=== PATIENT | female | born 2000 | race Caucasian/White ===

== ENCOUNTER 2019-06-06 13:00 | Emergency (ER) | payer OTHER ==
--- NOTE | 2019-06-06 13:05 | UC ---
Nausea/Vomiting/Diarrhea HPI - HPI Summary HPI Summary: Patient is a 18-year-old female presenting with acute onset of nausea and vomiting that began last night after work and continued throughout the night. Notes 10 episodes of emesis with the last one being at 9:30 this morning. Patient denies eating dinner last night because she did not feel well and only had a bagel with cream cheese for lunch yesterday. Denies abdominal pain. Denies hematemesis. Denies changes in bowel movements and urination. Denies fever and chills. States she has not been able to keep food down but has been keeping fluids down since this morning. Nausea continues. Denies possibility of and states she has the nexplanon. - History of Current Complaint Stated Complaint: VOMITING Hx Obtained From: Patient Hx Last Menstrual Period: 11/02/18 Onset/Duration: Sudden Onset, Lasting Hours - Allergies/Home Medications Allergies/Adverse Reactions: Allergies Allergy/AdvReac Type Severity Reaction Status Date / Time No Known Allergies Allergy Verified 06/06/19 13:05 Home Medications: Home Medications Ibuprofen TAB* [Motrin TAB* 600 MG] 400 mg PO Q8H PRN 06/06/19 [History Confirmed 06/06/19] PMH/Surg Hx/FS Hx/Imm Hx Previously Healthy: Yes - Surgical History Surgical History: None - Family History Known Family History: Positive: Non-Contributory - Social History Occupation: Employed Full-time Alcohol Use: None Substance Use Type: None Smoking Status (MU): Never Smoked Tobacco Review of Systems All Other Systems Reviewed And Are Negative: Yes Constitutional: Positive: Negative. Negative: Fever, Chills ENT: Positive: Negative Respiratory: Positive: Negative Cardiovascular: Positive: Negative Gastrointestinal: Positive: Vomiting, Nausea. Negative: Abdominal Pain, Diarrhea Musculoskeletal: Positive: Negative Neurological: Positive: Negative Physical Exam Triage Information Reviewed: Yes Appearance: Well-Appearing, No Pain Distress, Well-Nourished, Other: - sitting comfortably on exam table Vital Signs: Vital Signs (72 hours) 06/06/19 13:06 Temperature 98.1 F Pulse Rate 97 Respiratory 17 Rate Blood Pressure 137/54 (mmHg) O2 Sat by Pulse 100 Oximetry Vital Signs Reviewed: Yes Eyes: Positive: Conjunctiva Clear ENT: Positive: Hearing grossly normal, Pharyngeal erythema, TMs normal, Uvula midline, Other - moist oromucosa. Negative: Tonsillar swelling, Tonsillar exudate Neck exam: Normal Neck: Positive: Supple Respiratory Exam: Normal Respiratory: Positive: Lungs clear, Normal breath sounds, No respiratory distress Cardiovascular Exam: Normal Cardiovascular: Positive: RRR Abdominal Exam: Normal Abdomen Description: Positive: Nontender, Soft. Negative: CVA Tenderness (R), CVA Tenderness (L), Distended, Guarding, McBurney's Point Tenderness Bowel Sounds: Positive: Present Neurological: Positive: Alert Psychological: Positive: Age Appropriate Behavior Naus/Vom/Diarrhea Course/Dx - Course Course Of Treatment: I gave dose of zofran here for nausea. Patient VS and PE findings normal and no concern for dehydration. Gave prescription for zofran and instructed to increase fluids and continue symptomatic treatment. Instructed to go to ED if symptoms worsen. Patient voiced understanding and agreed with the treatment plan. - Differential Dx/Diagnosis Provider Diagnosis: Nausea and vomiting in adult patient Condition At Discharge: Stable Discharge ED - Sign-Out/Discharge Documenting (check all that apply): Patient Departure All imaging exams completed and their final reports reviewed: No Studies - Discharge Plan Condition: Stable Disposition: HOME Prescriptions: Ondansetron ODT TAB* [Zofran 4 MG Odt TAB*] 4 mg SL Q6H PRN #12 tab.odt PRN Reason: Nausea/Vomiting Patient Education Materials: Acute Nausea and Vomiting (ED) Forms: *Work Release Referrals: George Lee MD [Primary Care Provider] - If Needed Additional Instructions: As discussed, take the zofran every 6 hours as needed for your nausea and vomiting. Your symptoms should resolve within the next day or two. It is important to increase your fluid intake to avoid dehydration. Eat a bland diet, such as toast, bananas, apples, and rice while symptoms are present. Go to the emergency room if you develop fever, excessive vomiting, or are unable to keep fluids down. - Billing Disposition and Condition Condition: STABLE Disposition: Home
[2019-06-06 13:09] VITALS: BP 137/54
[2019-06-06] MEDS ORDERED: Ondansetron ODT TAB* 4 MG SL ONE (13:17)
== END 2019-06-06 13:24 | disposition home or self-care (01) ==
LOC: UCCORT 13:00
DX: R11.2 Nausea with vomiting, unspecified (principal)
CPT/HCPCS: 99212; A9270-GY; G0463